=== PATIENT | male | born 1965 | race Caucasian/White ===

== ENCOUNTER 2022-01-10 07:57 | Day surgery (SDC) | payer OTHER ==
[2022-01-06 15:39] VITALS: BMI 19.5
--- NOTE | 2022-01-09 09:31 | HP ---
HISTORY AND PHYSICAL CHIEF COMPLAINT: Left shoulder pain. HISTORY OF PRESENT ILLNESS: The patient is a 56-year-old gallo who presents with progressive left shoulder pain for the past 5 years, worsening over the past year. He is having pain with overhead use and at night. He notes limited range of motion and weakness. He has tried medications along with an exercise program without much relief. PAST MEDICAL HISTORY: Significant for arthritis. PAST SURGICAL HISTORY: Significant for left hand surgery. CURRENT MEDICATIONS: Meloxicam. ALLERGIES: MONTELUKAST. FAMILY HISTORY: Significant for cancer. SOCIAL HISTORY: Significant for tobacco use and social alcohol use. REVIEW OF SYSTEMS: Sixteen-point review of systems otherwise reviewed and is noncontributory. PHYSICAL EXAMINATION: On examination, the patient is approximately 6 feet tall, 145 pounds of mesomorphic habitus. HEENT exam is nonfocal. Neck is supple. On examination of his left shoulder, he is tender about the anterior subacromial space. He has moderate crepitus. Active range of motion: Forward elevation to 130 degrees, external rotation with arm at side 45 degrees, internal rotation to L5. Motor strength is 4/5 for abduction and external rotation. Impingement test, Neer tests and Speed test are positive. His distal neurovascular exam appears intact in the left upper extremity. X-rays of the left shoulder obtained in the office show diminished humeral head to acromial distance in addition to moderate glenohumeral joint space narrowing. MRI report shows evidence of a supraspinatus and infraspinatus tear with some retraction. IMPRESSION: 1. Left rotator cuff tea, symptomatic. 2. Left glenohumeral joint osteoarthrosis. 3. Left proximal bicipital tendinosis. RECOMMENDATIONS: I talked to the patient at length regarding his condition along with treatment options. At this point he is having significant pain throughout the day in addition to severe night symptoms despite previous conservative measures. After thorough discussion, he opts to proceed with surgery. We will plan to proceed with arthroscopic evaluation with possible subacromial decompression, rotator cuff repair versus debridement, in addition to possible biceps tenotomy. Risks and benefits were discussed at length in layman's terms. MMODL / IJN: [id number] /
[~2022-01-10 07:57] MED LIST: LACTATED RINGERS 1,000 ML IV SCH; LIDOCAINE 1% (10MG/ML) FOR IV START INTRADERMA PRN; ONDANSETRON 4 MG/2 ML VIAL IVP ONE; fentaNYL (PF) 50 MCG/ML 2 ML AMP IV PRN
[2022-01-10 08:47] VITALS: RESP 16
[2022-01-10] MEDS ORDERED: MIDAZOLAM 2 MG/2 ML VIAL IVP ONE (09:06)
[2022-01-10] MEDS ORDERED: fentaNYL (PF) 50 MCG/ML 2 ML AMP IVP ONE (09:07)
[2022-01-10] MEDS ORDERED: PROPOFOL 10 MG/ML 20 ML VIAL IV ONE (09:30)
[2022-01-10] MEDS ORDERED: SUCCINYLCHOLINE CHLORIDE 100 MG/5 ML SYR IV ONE (09:30)
[2022-01-10] MEDS ORDERED: PHENYLEPHRINE-0.9% NACL SYG 1,000 MCG/10 ML SYRINGE ONE (09:30)
[2022-01-10] MEDS ORDERED: GLYCOPYRROLATE 0.2 MG/ML 2 ML VIAL ONE (09:30)
[2022-01-10] MEDS ORDERED: ROPIVACAINE 5 MG/ML 30 ML VIAL ONE (09:30)
[2022-01-10] MEDS ORDERED: fentaNYL (PF) 50 MCG/ML 2 ML AMP ONE (09:30)
[2022-01-10] MEDS ORDERED: NEOSTIGMINE 1 MG/ML 10 ML VIAL ONE (09:30)
[2022-01-10] MEDS ORDERED: LIDOCAINE 1% INJ 10MG/ML (20 ML MDV) ONE (09:30)
[2022-01-10] MEDS ORDERED: EPINEPHrine (PF) 1 ML in SODIUM CHLORIDE 0.9% IRRIGATIO 3,000 ML IRRIGATION ONE ×8 (09:41)
--- NOTE | 2022-01-10 10:15 | P.ANPRN ---
Procedure Note - Anesthesia - Nerve Block Performed Left Interscalene Single Time Out Performed: Yes ([id number]) Date of Procedure: 01/10/22 Procedure Start Time: :07 Procedure Stop Time: 09:12 Location of Patient: PreOp Indication: Acute Post-Operative Pain, Requested by Surgeon Specifically requested for management of pain by : Genaro Kiser Sedation Type: Sedate with meaningful contact maintained Preparation: Sterile Prep Position: Supine Catheter: None Needle Types: Pajunk Needle Gauge: 21 Ultrasound used to visualize needle placement: Yes Ultrasound used to observe medication spread: Yes Injectate: 0.5% Ropivacaine (see comment for volume) (30cc) Blood Aspirated: No Pain Paresthesia on Injection Noted: No Resistance on Injection: Normal Image Stored and Saved: Yes Events: Uneventful and Well Tolerated
[2022-01-10] MEDS ORDERED: LACTATED RINGERS 1,000 ML IV ONE (11:10)
--- NOTE | 2022-01-10 11:42 | P.OP ---
Date of Procedure: 01/10/22 Preoperative Diagnosis: Left rotator cuff tearsymptomatic Postoperative Diagnosis: 5 cm left rotator cuff tear/high-grade partial-thickness tear long head of biceps Procedure(s) Performed: Left shoulder arthroscopic subacromial decompression/rotator cuff repair/biceps tenotomy Implants: Arthrex 4.75 mm swivel lock anchor 3, 5.5 mm swivel lock anchor 2 Anest[facility]: [facility], regional Surgeon: Genaro Kiser Rebeamer #1: Familia Beltran Estimated Blood Loss (ml): 10 Pathology: none sent Condition: stable Disposition: PACU Indications for Procedure: The patient's a 56-year-old male who presents with progressive left shoulder pain and weakness despite previous conservative measures. A discussion of the risks and benefits of operative intervention versus continued conservative measures was made with patient. He opted to proceed with surgery. Operative risks to include infection, neurovascular injury, development of blood clots, possible tendon rerupture, possible postoperative stiffness and need for subsequent procedures was discussed. Informed consent was obtained. Operative Findings: As below Description of Procedure: The patient was brought to the operating room, and after induction of general anesthesia was placed in a beachchair position. A preoperative interscalene block was placed for postoperative analgesia. I examined the left shoulder. There was no gross block to passive motion or gross glenohumeral instability. The left upper extremity was prepped and draped in normal fashion. The bony outlines the acromion, distal clavicle, and coracoid process were outlined with a skin marker. The glenohumeral joint was inflated with 50 mL of saline utilizing a spinal needle from posterior approach. A posterior portal was made through a 5 mm skin incision 1 cm medial and inferior to the posterior lateral border time. A blunt trocar was used to easily into the joint. Diagnostic arthroscopy was performed. An anterior portal was made just lateral to the coracoid process entering the joint above the subscapularis tendon. The subscapularis tendon appeared to be intact. Anterior labrum was intact. The inferior recess was inspected. The posterior labrum was intact. There was a high-grade partial-thickness tear of the long head of the biceps involving interarticular portion. It was elected to proceed with release at this point. This was released from the superior labrum with electrocautery and was allowed to retract to the bicipital groove. On inspection the rotator cuff, a full- thickness tear involving the supraspinatus and infraspinatus was noted with retraction. The arthroscope was placed into the subacromial space. A lateral portal was made 2 centimeters inferior to the anterior lateral border of the acromion. The rotator cuff was then mobilized with a traction suture. This was then brought back to the greater tuberosity. The soft tissue on the undersurface of the acromion was debrided with a motorized shaver and electrocautery clearly defining the anterior medial and lateral borders as well as the distal clavicle. An anterior inferior acromioplasty was performed with a motorized reji starting anterolateral, then extending this posteriorly, then extending this medially. I converted to a flat acromion and this was verified in the posterior and lateral viewing portals. The greater tuberosity was lightly decorticating with a shaver down to a bleeding bony surface. An accessory superior lateral portals made just off the lateral edge of the acromion for anchor placement. 3 anchors were then placed just off the articular surface with the appropriate starting awl. 4.75 mm anchors preloaded with #2 fiber tape were placed. Good purchase was obtained. These fiber tapes were then passed the rotator cuff with a scorpion suture passer. A lateral row was created crisscrossing these tapes. 5.5 mm swivel lock anchors x2 were placed laterally. Good purchase was obtained. Final arthroscopic view showed adequate compression at the footprint. The arthroscope was then removed. The portals were closed with simple 3-0 nylon sutures. A sterile dressing was applied in addition to an abductor brace. The patient was then awoken from general anesthesia and transferred to recovery room in good condition. Blood loss was estimated at 10 mL. No complications were incurred. Sponge and needle counts were correct in the case. Familia FORD assisted and the major components of the case to include arm positioning, anchor placement, and rotator cuff repair.
[2022-01-10 11:43] VITALS: TEMP 97
[2022-01-10] MEDS ORDERED: MEPERIDINE 50 MG/ML SYRINGE IVP ONE (12:06)
[2022-01-10 12:21] VITALS: PULSE 68
[2022-01-10 12:37] VITALS: BP 144/78
[2022-01-10] MEDS ORDERED: ACETAMINOPHEN TAB 500 MG TAB ONE (12:42)
== END 2022-01-10 13:30 | disposition home or self-care (01) ==
LOC: OR 07:57
PROVIDERS: ATTEND Orthopaedic Surgery
DX: M75.102 Unspecified rotator cuff tear or rupture of left shoulder, not specified as traumatic (principal); S46.112A Strain of muscle, fascia and tendon of long head of biceps, left arm, initial encounter; X58.XXXA Exposure to other specified factors, initial encounter; M19.012 Primary osteoarthritis, left shoulder; M75.22 Bicipital tendinitis, left shoulder; M19.90 Unspecified osteoarthritis, unspecified site; F17.210 Nicotine dependence, cigarettes, uncomplicated; Z80.9 Family history of malignant neoplasm, unspecified; Z98.890 Other specified postprocedural states; Z79.1 Long term (current) use of non-steroidal anti-inflammatories (NSAID); Z79.899 Other long term (current) drug therapy; Z88.8 Allergy status to other drugs, medicaments and biological substances; Z88.5 Allergy status to narcotic agent
CPT/HCPCS: 64415; 76942; 29826; 29827; C1713 ×3; C1894; J2250; J2710; J2175; J2405; J0690; J0171; J2001; J3010; J2795; J2370; J0330; J2704

== ENCOUNTER 2023-05-31 08:22 | Emergency (ER) | payer OTHER ==
[2023-05-31 08:30] VITALS: BP 175/90; PULSE 69; RESP 20; TEMP 97.5
[2023-05-31] MEDS ORDERED: KETOROLAC 15 MG/ML 1 ML VIAL IM STA (08:46)
--- NOTE | 2023-05-31 08:46 | ED ---
Upper Extremity HPI - General Chief Complaint: Extremity Injury, Upper Stated Complaint: Fall,L Shoulder injury-Surgery on it 01/2022 Time Seen by Provider: 05/31/23 08:34 Source: patient Mode of arrival: ambulatory - History of Present Illness Initial Comments: Patient is a 57-year-old male presenting to the emergency room with complaints of left shoulder pain. He reports that he slipped and fell in the shower 2 days ago and that his arm specifically his left shoulder has become more and more painful to the point where it is severe pain for him to move at this time. He still had his shoulder immobilizer from a surgical repair of his left shoulder by by Dr. Kiser in 2021 which he applied after the fall. He denies any visual dislocation, deformity or wound. Postoperatively he utilize Kelso for pain control with good response. He denies any numbness or tingling in the extremity or any injury to any other location. His only other significant past medical history is for hypertension. - Related Data Home Medications Medication Instructions Recorded Confirmed Meloxicam [Mobic] 7.5 mg PO BID 01/06/22 01/06/22 Multivit-Mins/Iron/Folic/Lycop 1 each PO DAILY 01/06/22 01/06/22 [Centrum Men's Tablet] amLODIPine [Norvasc] 2.5 mg PO DAILY 01/06/22 01/10/22 Previous Rx's Medication Instructions Recorded HYDROcodone/APAP 7.5-325MG [Kelso 1 each PO Q6HR PRN 3 Days #12 tab 05/31/23 7.5] Allergies Allergy/AdvReac Type Severity Reaction Status Date / Time codeine Allergy Unknown Itching Verified 05/31/23 08:30 Review of Systems ROS Statement: Those systems with pertinent positive or pertinent negative responses have been documented in the HPI. ROS Other: All systems not noted in ROS Statement are negative. Past Medical History Past Medical History: Hypertension History of Any Multi-Drug Resistant Organisms: None Reported Additional Past Surgical History / Comment(s): RECONSTRUCTIVE SURGERY LEFT HAND (SAW INJURY), surgical repair of muscles in left shoulder 2021 Past Anesthesia/Blood Transfusion Reactions: No Reported Reaction Past Psychological History: No Psychological Hx Reported Smoking Status: Current every day smoker Past Alcohol Use History: Daily Past Drug Use History: None Reported General Exam Limitations: no limitations General appearance: alert, in no apparent distress Head exam: Present: atraumatic, normocephalic, normal inspection Eye exam: Present: normal appearance, PERRL, EOMI. Absent: scleral icterus, conjunctival injection, periorbital swelling ENT exam: Present: normal exam, mucous membranes moist Neck exam: Present: normal inspection, full ROM Respiratory exam: Absent: respiratory distress, accessory muscle use Cardiovascular Exam: Present: regular rate Left Shoulder Exam: Present: tenderness, tenderness over AC joint. Absent: full ROM (Limited by pain), swelling, abrasion, laceration, ecchymosis, deformity, crepitus, dislocation Vascular: Absent: vascular compromise Back exam: Present: normal inspection Neurological exam: Present: alert, oriented X3, CN II-XII intact Psychiatric exam: Present: normal affect, normal mood Skin exam: Present: warm, dry, intact, normal color. Absent: rash Course Vital Signs 05/31/23 08:25 Temperature 97.5 F L Pulse Rate 69 Respiratory 20 Rate Blood Pressure 175/90 O2 Sat by Pulse 99 Oximetry Medical Decision Making - Medical Decision Making Was pt. sent in by a medical professional or institution (, PA, [employer], urgent care, hospital, or senior living...) When possible be specific @ -No Did you speak to anyone other than the patient for history (EMS, parent, family, police, friend...)? What history was obtained from this source @ -No Did you review nursing and triage notes (agree or disagree)? Why? @ -I reviewed and agree with nursing and triage notes Were old charts reviewed (outside hosp., previous admission, EMS record, old EKG, old radiological studies, urgent care reports/EKG's, senior living records)? Report findings @ -No old charts were reviewed Differential Diagnosis (chest pain, altered mental status, abdominal pain women, abdominal pain men, vaginal bleeding, weakness, fever, dyspnea, syncope, headache, dizziness, GI bleed, back pain, seizure, CVA, palpatations, mental health, musculoskeletal)? @ -Differential Musculoskeletal Muscular strain, contusion, ligament sprain, fracture, arthritis, septic arthritis, bursitis, cellulitis, muscle spasm, nerve compression, DVT, arterial occlusion, herpes zoster, electrolyte abnormality, tumor.... This is not meant to be in all inclusive list EKG interpreted by me (3pts min.). @ -None done X-rays interpreted by me (1pt min.). @ -X-ray left shoulder: No fracture or subluxation. Per radiologist concern for bony changes of the chronic rotator cuff tendinopathy and narrowing of the subacromial space that could reflect underlying full-thickness rotator cuff tear. CT interpreted by me (1pt min.). @ -None done U/S interpreted by me (1pt. min.). @ -None done What testing was considered but not performed or refused? (CT, X-rays, U/S, labs)? Why? @ -None What meds were considered but not given or refused? Why? @ -None Did you discuss the management of the patient with other professionals (professionals i.e. , PA, [employer], lab, RT, psych nurse, hospital social worker, fowl blood tester, te acher, campus safety officer, manager of case management)? Give summary @ -No Was smoking cessation discussed for >3mins.? @ -No Was critical care preformed (if so, how long)? @ -No Were there social determinants of health that impacted care today? How? (Homelessness, low income, unemployed, alcoholism, drug addiction, transportation, low edu. Level, literacy, decrease access to med. care, fdc, rehab)? @ -No Was there de-escalation of care discussed even if they declined (Discuss DNR or withdrawal of care, Hospice)? DNR status @ -No What co-morbidities impacted this encounter? (DM, HTN, Smoking, COPD, CAD, Cancer, CVA, ARF, Chemo, Hep., AIDS, mental health diagnosis, sleep apnea, morbid obesity)? @ -None Was patient admitted / discharged? Hospital course, mention meds given and rou te, prescriptions, significant lab abnormalities, going to OR and other pertinent info. @ -57-year-old male presenting to the emergency room with complaints of left shoulder pain. He reports that he slipped and fell in the shower 2 days ago and that his arm specifically his left shoulder has become more and more painful to the point where it is severe pain for him to move at this time. Will give Toradol for pain and continue current shoulder immobilizer application. Will obtain x-ray of the left shoulder. X-ray negative for fracture or dislocation concerning for possible rotator cuff tear. Advised continued use of shoulder immobilizer at this time and to follow- up with his orthopedic surgeon Dr. Kiser. Will give a short course of Kelso to utilize for severe pain as needed. Signs and symptoms requiring immediate evaluation reviewed. Questions and concerns answered. Return parameters to the emergency room discussed. We'll discharge home in stable condition status post fall with pain to his left shoulder with a prescription of Kelso 7. 03/07/2025 to utilize for severe pain advising follow-up with his primary care provider and orthopedist. Undiagnosed new problem with uncertain prognosis? @ -No Drug Therapy requiring intensive monitoring for toxicity (Heparin, Nitro, Insulin, Cardizem)? @ -No Were any procedures done? @ -No Diagnosis/symptom? @ -Left shoulder pain Acute, or Chronic, or Acute on Chronic? @ -Acute Uncomplicated (without systemic symptoms) or Complicated (systemic symptoms)? @ -Uncomplicated Side effects of treatment? @ -No Exacerbation, Progression, or Severe Exacerbation? @ -No Poses a threat to life or bodily function? How? (Chest pain, [place], [place], pneumonia, PE, COPD, DKA, ARF, appy, cholecystitis, CVA, Diverticulitis, Homicidal, Suicidal, threat to staff... and all critical care pts) @ -No Diagnosis/symptom? @ -Slip and fall Acute, or Chronic, or Acute on Chronic? @ -Acute Uncomplicated (without systemic symptoms) or Complicated (systemic symptoms)? @ -Uncomplicated Side effects of treatment? @ -none Exacerbation, Progression, or Severe Exacerbation] @ -no Poses a threat to life or bodily function? @ -no Case discussed with Dr. Youngblood. Disposition Clinical Impression: Fall, Left shoulder pain Disposition: HOME SELF-CARE Condition: Stable Instructions (If sedation given, give patient instructions): Shoulder Pain (ED) Additional Instructions: Utilize Kelso prescription as needed for pain. Please follow-up with your primary care provider and orthopedist Dr. Kiser for further evaluation of your left shoulder pain; you may need an MRI to evaluate your shoulder pain further. Avoid any repetitive motion or heavy lifting. Please return to the Emergency Department if symptoms worsen or any other concerns. Prescriptions: HYDROcodone/APAP 7.5-325MG [Kelso 7.5] 1 each PO Q6HR PRN 3 Days #12 tab PRN Reason: Pain Is patient prescribed a controlled substance at d/c from ED?: No Referrals: Alfonzo,Sharif, DO [Primary Care Provider] - 1-2 days Time of Disposition: 09:43
--- NOTE | 2023-05-31 09:12 | XR ---
EXAMINATION TYPE: XR shoulder complete 3 views LT DATE OF EXAM: 05/31/2023 Comparison: None Clinical History: 57-year-old male with pain after fall, surgery last year, fall pain Findings: Mild degenerative change at the AC joint. There may be slight narrowing of the subacromial space. Bon y irregularity of the greater tuberosity. Minimal degenerative spurring at the inferior glenohumeral joint. Otherwise, no acute fracture, subluxation, or dislocation is seen. Impression: Bony changes of chronic rotator cuff tendinopathy. There may be narrowing of the subacromial space th at could reflect an underlying full-thickness rotator cuff tear. Consider MRI for further evaluation if indicated. Otherwise, no acute osseous abnormality seen.
== END 2023-05-31 10:04 | disposition home or self-care (01) ==
LOC: EC 08:22
DX: M25.512 Pain in left shoulder (principal); I10 Essential (primary) hypertension; F17.200 Nicotine dependence, unspecified, uncomplicated; Z79.899 Other long term (current) drug therapy; Z88.5 Allergy status to narcotic agent; W18.2XXA Fall in (into) shower or empty bathtub, initial encounter; Y93.E1 Activity, personal bathing and showering
CPT/HCPCS: 73030; 99283; 96372; J1885